=== PATIENT | female | born 1970 | race Caucasian/White ===

== ENCOUNTER → 2016-07-17 | Outpatient (CLI) | payer MEDICAID ==
--- NOTE | 2016-07-17 14:15 | US ---
Thyroid Ultrasound INDICATION: Single thyroid nodule. TECHNIQUE: Bilateral thyroid nodule ultrasound is performed. COMPARISON: June 06, 2014. FINDINGS: Right thyroid gland measures 4.6 x 1.4 x 1.9 cm. There is a complex heterogeneous nodule in the inferior right lobe at 1.4 x 0.8 x 0.9 cm. It was previously 0.9 x 0.8 x 0.6 cm. Along the infer ior aspect of this nodule it is more hypoechoic. The echogenic central area that measures 6 x 5 x 9 m m is increased in vascularity compared to the surrounding thyroid gland. This has definitively increa sed in size compared to the prior ultrasound, and has changed slightly in imaging characteristics, al though the overall increase in vascularity is the same. Left thyroid gland measures 4.5 x 1.4 x 1.8 cm. There is a hypoechoic well-circumscribed nodule at th e upper pole that measures 10 x 7 x 8 mm, compared to previous 8 x 7 x 8 mm. It is decreased in vascu larity. At the lower pole, there is a nodule that measures 1.4 x 1.2 x 1.1 cm. It is previously 1.1 x 0.8 x 0 .8 cm. There is a focus of calcification of 5 x 5 mm at the superior end of it. The size of the nodul e has increased compared to the previous ultrasound, but the focus of calcification has not changed i n size. This nodule is also increased in vascularity, which is also an unchanged phenomenon. No abnormal lymph nodes in the surrounding region. IMPRESSION: 1. Multiple thyroid nodules bilaterally, all of which have increased in size. 2. Hypervascularity of the nodules has not changed. 3. Focus of calcification on the left inferior nodule is also not changed. 4. No new nodules.
--- NOTE | 2016-07-17 16:45 | MA ---
Screening Digital Mammogram Clinical Indications: Routine screening. Personal history of right breast reduction many years ago. Technique: Standard cephalocaudal and mediolateral oblique projections are obtained. This examinati on is processed by the [employer] computer aided detection system. Comparison: January 2015, December 2013 and November 2012, January 2011 Breast density: B; There are scattered fibroglandular densities. Findings: CAD was reviewed. Asymmetry in the outer right breast (CC view) looks slightly more promine nt than it has in the past which could be projectional. The remainder of the right and left breast ar e stable. Impression: Possibly developing density outer right breast at the site of prior asymmetry.. Recommendation: CC view exaggerating the far outer right breast and a spot compression view of this area to be compared to the exaggerated CC view from January 2011. If there is a significant change, th en proceed to ultrasound for further evaluation. BI-RADS 0. Additional imaging outer right breast. [facility] will send a result letter to the patient. Negative mammography should not preclude additional workup of a clinically suspicious finding. The patient's information is entered into a reminder system with a target due date for her next mammo gram.
== END ==
LOC: CIMAGING 10:15
PROVIDERS: ATTEND Obstetrics & Gynecology
DX: Z12.31 Encounter for screening mammogram for malignant neoplasm of breast (principal); E04.9 Nontoxic goiter, unspecified
CPT/HCPCS: 76536-PO; G0202

== ENCOUNTER → 2016-08-04 | Outpatient (CLI) | payer MEDICAID ==
--- NOTE | 2016-08-04 13:20 | MA ---
Diagnostic Digital Right Mammogram History: Asymmetry far outer right breast., History of breast reduction surgery Comparison: July 17, 2016, January 2015 and January 2011 (including a cc view exaggerating the far o uter right breast). Technique: A true lateral view a CC view exaggerating the far outer right breast and a spot compressi on view over the outer right breast. Density: B Findings: The asymmetry in the far outer right breast looks less dominant currently than it did in 17 05. There is no associated architectural distortion or microcalcification formation.. Impression: Benign parenchymal asymmetry. Recommendation: Return to screening mammography of both breasts in 1 year BI-RADS 2. Benign. Results and recommendation communicated to the patient at the time of the examination.
== END ==
LOC: CIMAGING 12:47
DX: R92.2 Inconclusive mammogram (principal)
CPT/HCPCS: G0206

== ENCOUNTER 2017-04-08 20:49 | Emergency (ER) | payer OTHER, MEDICAID ==
[2017-04-08 20:59] VITALS: RESP 16; TEMP 98.1
[2017-04-08] MEDS ORDERED: DEXAMETHASONE 10 MG/ML VIAL IVP ONE (21:34)
[2017-04-08] MEDS ORDERED: KETOROLAC 30 MG/1 ML SDV IVP ONE (21:34)
[2017-04-08] MEDS ORDERED: NS 1,000 ML IV ONE (21:34)
[2017-04-08] MEDS ORDERED: METOCLOPRAMIDE 10 MG/2 ML VIAL IVP ONE (21:34)
--- NOTE | 2017-04-08 21:56 | EDPHY ---
H & P Time Seen by Provider: 04/08/17 21:05 HPI/ROS: This patient complains of severe headache frontal in location, 2 days duration, gradual in onset. She describes this as achy in nature and occasionally throbbing. She has associated photophobia. She reports no relief from Tylenol. She reports the intensity of the pain is debilitating. She notes associated neck ache that she describes 4 days duration after lifting weights. This is paraspinous muscular in location and 4/10 intensity. She has associated nausea but no vomiting. This headache is reminiscent of occasional migraine she has had in the past total for her life but is lasted longer than any prior migraine. Usually her migraines resolve with rest and over-the- counter medications. She drove herself here by private vehicle for further evaluation. Review of symptoms: Constitutional: No fevers HEENT: URI symptoms last week consisting of nasal congestion and mild sore throat resolved. Neuro: No numbness tingling or focal weakness. No visual changes. No confusion. No aura. Pulmonary: No cough currently but had a mild cough last week. Cardiovascular: No complaints GI: No vomiting. No abdominal pain Musculoskeletal: No recent trauma Integumentary: No skin rash 10 point ROS is otherwise negative. Smoking Status: Never smoked Physical Exam: Physical exam: Vital signs are normal General: Patient is in no acute distress. HEENT: Is no external evidence of trauma on exam. Nose atraumatic. No sinus tenderness to percussion Ears: Clear bilaterally with no hemotympanum. Oropharynx: No dental trauma or malocclusion. No intraoral lacerations. Eyes: Pupils are equal and reactive to light. Extraocular motions are intact. Optic fundi: Clear with no papilledema or hemorrhage. Lungs: Clear to auscultation bilaterally Neck: Supple no meningismus. Cardiac: Regular rate and rhythm no murmur gallop or rub. Abdomen: Soft nontender no organomegaly Neuro: GCS of 15. Cranial nerves II through XII intact. Cerebellar exam is normal as judged by symmetric rapid hand movements bilaterally. No pronator drift. No sensory or motor deficits are appreciated. Initial differential diagnosis: Migraine, tension headache, neck muscle pain, doubt sinusitis doubt CORSETIER lesion, or intracranial bleed Constitutional: Initial Vital Signs Temperature (C) 36.7 C 04/08/17 20:55 Heart Rate 76 04/08/17 20:55 Respiratory Rate 16 04/08/17 20:55 Blood Pressure 127/41 H 04/08/17 20:55 O2 Sat (%) 96 04/08/17 20:55 O2 Delivery Mode Room Air Allergies/Adverse Reactions: No Known Allergies Allergy (Verified 04/08/17 20:59) Home Medications: Medication Instructions Recorded No Medications [NO HOME 1 ea MISC 08/25/10 MEDICATIONS] Ibuprofen [Motrin (*)] 600 mg PO Q6 PRN #30 tab 04/08/17 Methocarbamol [Robaxin 750 mg (*)] 750 - 1,500 mg PO QID PRN #30 tab 04/08/17 MDM/Departure - MDM Medications Given: Discontinued Medications Dexamethasone (Decadron Injection) 10 mg IVP EDNOW ONE Stop: 04/08/17 21:35 Last Admin: 04/08/17 22:33 Dose: Not Given Sodium Chloride (Ns) 1,000 mls @ 0 mls/hr IV EDNOW ONE; Wide Open PRN Reason: Protocol Stop: 04/08/17 21:35 Last Admin: 04/08/17 22:06 Dose: 1,000 mls Ketorolac Tromethamine (Toradol) 30 mg IVP EDNOW ONE Stop: 04/08/17 21:35 Last Admin: 04/08/17 22:08 Dose: 30 mg Metoclopramide HCl (Reglan Injection) 5 mg IVP EDNOW ONE Stop: 04/08/17 21:35 Last Admin: 04/08/17 22:34 Dose: Not Given ED Course/Re-evaluation: 1st 2 IV attempts Blew veins IV normal saline bolus, Toradol. The patient is apprehensive about other meds declined other meds besides the Toradol. At 10:48 p.m., the patient reports significant improvement with the Toradol IV with a headache down to 2/10. Discussion: Think this patient started with a tension headache extending from her neck muscle pain that likely resulted firmer weight lifting 4 days ago. Her headache is migraine-like in that is incapacitating was associated with photophobia and nausea but significantly improved with treatment. She has normal CBC in terms of white count I do not think she has sinusitis. Also, no clinical evidence to suggest meningitis. I counseled patient regarding this. - Depart Disposition: Home, Routine, Self-Care Clinical Impression: Migraine Qualifiers: Migraine type: without aura Status migrainosus presence: with status migrainosus Intractability: not intractable Qualified Code(s): G43.001 - Migraine without aura, not intractable, with status migrainosus Cervical muscle strain Qualifiers: Encounter type: initial encounter Qualified Code(s): S16.1XXA - Strain of muscle, fascia and tendon at neck level, initial encounter Condition: Good Instructions: Cervical Strain (ED), Migraine Headache (ED) Additional Instructions: Diagnoses: 1. Migraine 2. Neck muscle strain Plan: Ibuprofen Tylenol for pain. Methocarbamol muscle relaxant in addition if needed for neck pain Drink plenty fluids Follow up with primary care physician or with neurologist listed below for any ongoing symptoms Return emergency department for any significant worsening despite treatment plan Prescriptions: Ibuprofen [Motrin (*)] 600 mg PO Q6 PRN #30 tab PRN Reason: Pain Methocarbamol [Robaxin 750 mg (*)] 750 - 1,500 mg PO QID PRN #30 tab PRN Reason: Muscle Spasms Referrals: Maria Victoria Boyer NP [Primary Care Provider] - As per Instructions Roe Zhang DO [Medical Doctor] - As per Instructions
[2017-04-08 22:16] LABS: % IMMATURE GRANULYOCYTES 0.2 % (0.0-1.1); ABSOLUTE IMMATURE GRANULOCYTES 0.01 10^3/uL (0.00-0.10); ADD DIFF? NO; ADD MORPH? NO; ADD SCAN? NO; ATYPICAL LYMPHOCYTE FLAG 0 (0-99); FRAGMENT RBC FLAG 0 (0-99); HEMOGLOBIN 11.3 g/dL (12.6-16.3); LEFT SHIFT FLG 0 (0-99); LIPEMIA HEMOLYSIS FLAG 80 (0-99); MEAN CELL HEMOGLOBIN 30.4 pg (27.9-34.1); MEAN CELL HEMOGLOBIN CONCENTR. 33.2 g/dL (32.4-36.7); MEAN CELL VOLUME 91.4 fL (81.5-99.8); MEAN PLATELET VOLUME 9.8 fL (8.7-11.7); PLATELET CLUMPS FLAG 0 (0-99); PLATELET COUNT 341 10^3/uL (150-400); RED BLOOD CELL COUNT 3.72 10^6/uL (4.18-5.33); RED CELL DISTRIBUTION WIDTH 13.2 % (11.5-15.2)
[2017-04-08 23:11] VITALS: BP 112/50; PULSE 66; O2SAT 98
== END 2017-04-08 23:08 | disposition home or self-care (01) ==
LOC: CED 20:49
DX: S16.1XXA Strain of muscle, fascia and tendon at neck level, initial encounter (principal); G43.001 Migraine without aura, not intractable, with status migrainosus; E86.9 Volume depletion, unspecified; X58.XXXA Exposure to other specified factors, initial encounter
CPT/HCPCS: 85025-PO; 96374; J1100; J1885; J2765

== ENCOUNTER 2017-08-23 10:38 | Emergency (ER) | payer MEDICAID, OTHER ==
[2017-08-23 10:58] VITALS: BP 105/72; PULSE 75; RESP 18; TEMP 98.1; O2SAT 100
--- NOTE | 2017-08-23 11:36 | EDPHY ---
H & P Time Seen by Provider: 08/23/17 11:02 HPI/ROS: HPI Dental pain. 46-year-old female by private vehicle. She reports that she had her left lower 1st premolar extracted by an oral surgeon named Dr. Corcoran 2 weeks ago. She reports that she has had pain to this area and her left lower jaw since this time. She reports she has been taking ibuprofen with some relief. She reports that she saw Dr. Corcoran on Wednesday. She was evaluated by him. He did not feel that there was infection or any drainable abscess or other problem in need of emergency care. He did put her on Augmentin which she has been taking for the last day and a half. She has had 3 doses of this medication. She presents to the emergency department complaining of continued pain. She has also had some mild swelling to the left jaw since the time of the extraction. She has not had a fever. She describes the pain as sharp and aching with radiation down into the left side of her neck. ROS: Constitutional: No fever, no chills. No weakness. Eyes: No discharge. No changes in vision. ENT: No sore throat. No nasal congestion or rhinorrhea. As above. Musculoskeletal: As above. Skin: No rashes. Neurological: No headache. No focal weakness or altered sensation. Past medical history: Migraine headaches, chronic anemia, rosacea. As above. Social history: Nonsmoker. Here by herself. No alcohol. Physical Exam: General Appearance: Alert, no distress. This patient is responding to questions appropriately and in full sentences. This patient appears well- hydrated and well-nourished. Eyes: Pupils equal and round no pallor or injection. No lid edema, erythema or injection. ENT, Mouth: Mucous membranes are moist. The pharyngeal tissues are unremarkable. No edema or swelling. No asymmetry suggestive of abscess. No erythema or exudates. The extracted tooth cavity is unremarkable. This does not appear to be a dry socket. There is no purulent drainage or bleeding from the extraction site of the 1st lower left-sided premolar. She has mild gingival inflammation just below the extraction site but no fluctuance or drainable abscess. There is subtle left-sided lower facial/mandibular swelling. No associated erythema or warmth. She has no cervical, submental, submandibular lymphadenopathy. No swelling of the soft tissues of the neck. She is clear on auscultation with normal upper airway sounds. Neurological: Motor sensory function is grossly intact. Cranial nerves are normal. Gait is normal. Skin: Warm and dry, no rashes. Musculoskeletal: Neck is supple and nontender. Extremities are symmetrical. All joints range without pain or impingement. Psychiatric: No agitation. No depression. Database: EKG: Imaging: Procedures: Emergency department course: Her vital signs reviewed and are normal. She does not appear toxic. I explained that I did not appreciate any drainable tommy gingival abscess. I did offer her an inferior alveolar nerve block. She declined this. I feel her antibiotic coverage is appropriate considering her complaint. She does not want to return to her oral surgeon and is asking for referral to see someone else. 11:40 a.m., spoke to the office of Dr. Bud Asher, oral surgeon on-call today, they will see this patient in the office on WednesdayAugust 25 at 10:45 a.m.. This plan was discussed with the patient. She is in agreement and very appreciative. She feels comfortable going home and continuing her Augmentin as well as ibuprofen for pain control. I discussed return to emergency department precautions with her. All of her questions were answered. She was discharged in good condition. Differential Diagnosis: The differential diagnosis on this patient includes but is not limited to dental pain status post tooth extraction, dental abscess. Osteomyelitis, cellulitis unlikely. This represents a partial list of diagnoses considered. These considerations are based on history, physical exam, past history, reassessment and diagnostic testing. Smoking Status: Never smoked Constitutional: Initial Vital Signs Temperature (C) 36.7 C 08/23/17 10:56 Heart Rate 75 08/23/17 10:56 Respiratory Rate 18 08/23/17 10:56 Blood Pressure 105/72 08/23/17 10:56 O2 Sat (%) 100 08/23/17 10:56 O2 Delivery Mode Room Air Allergies/Adverse Reactions: No Known Allergies Allergy (Verified 08/23/17 10:58) Home Medications: Medication Instructions Recorded Augmentin 875 MG TAB (*) 08/23/17 Motrin (*) 08/23/17 Departure - Departure Disposition: Home, Routine, Self-Care Clinical Impression: Pain, dental, History of recent dental procedure Condition: Good Instructions: Toothache (ED) Additional Instructions: Read and follow provided instructions. Follow-up with oral surgeon, Dr. Bud Asher, on WednesdayAugust 25 at 10:45 a.m. In his office. Please call his office this afternoon. They will ask you questions regarding your previous medical history and insurance. I will also fax my records over to his office. Take your antibiotics as prescribed through entire course of treatment. Ibuprofen dosin mg every 6 hours with meals for the next 3 days only. Take only as needed for pain. Return to the emergency department for worsening pain, fever, facial swelling, shortness of breath or other serious concerns. Referrals: Cody Asher DDS [Doctor of Dental Surgery] - As per Instructions
== END 2017-08-23 11:43 | disposition home or self-care (01) ==
LOC: CED 10:38
DX: G89.18 Other acute postprocedural pain (principal); K08.89 Other specified disorders of teeth and supporting structures

== ENCOUNTER → 2018-02-17 | Outpatient (CLI) | payer OTHER | LOC: CIMAGING 08:23 | PROVIDERS: ATTEND Obstetrics & Gynecology | DX: Z12.31 Encounter for screening mammogram for malignant neoplasm of breast (principal) ==

== ENCOUNTER → 2018-08-12 | Outpatient (CLI) | payer OTHER | LOC: CIMAGING 12:28 | PROVIDERS: ATTEND Nurse Practitioner | DX: E04.1 Nontoxic single thyroid nodule (principal) | CPT/HCPCS: 76536-PO ==